=== PATIENT | male | born 1945 | race Caucasian/White ===

== ENCOUNTER 2017-11-09 23:22 | Inpatient (IN) ==
--- NOTE | 2017-11-09 23:43 | Emergency Department Note ---
Disposition Clinical Impression: Dehydration, MICAH (acute kidney injury), Left bundle branch block Syncope Qualifiers: Syncope type: unspecified Qualified Code(s): R55 - Syncope and collapse Disposition: Admitted As Inpatient Condition: Good [facility]errals: [facility]Primary Care Provider[facility] - Forms: ED Satisfaction Letter Time of Disposition: 01:02 Syncope HPI - General Chief Complaint: ED Syncope Time Seen by Provider: 11/09/17 23:26 Vital Signs Reviewed: Yes - History of Present Illness HPI Narrative: 72-year-old male presents status post 2 syncopal episodes. He does not remember passing out. He does remember being dizzy. He gave a double unit of red blood cells to the [place] this morning at 11 AM. He states that he did not eat or drink like he was supposed to after giving blood. He has not eaten since he gave blood, he has drank 1 glass of water. He does not currently feel dizzy. He states that his vitals were perfect when he gave blood this morning. - Related Data Allergies Allergy/AdvReac Type Severity Reaction Status Date / Time No Known Allergies Allergy Verified 11/09/17 23:35 Constitutional: Denies: fever, chills Cardiovascular: Denies: chest pain Respiratory: Denies: dyspnea Gastrointestinal: Denies: abdominal pain, nausea, vomiting, diarrhea Neurological: Reports: other (dizziness) Past Medical History - Past Medical History Medical history: Reports: diabetes - Social History Smoking Status: Never smoker Alcohol use: Reports: occasionally Drug use: Reports: none Physical Exam - General General appearance: alert, in no apparent distress Course - Reevaluation(s) Reevaluation #1: Dr. Dwyer, hospitalist, accepts admission. He would like interventional cardiology made aware of patient due to presence of ?new onset left bundle branch block. Time: 01:03 Reevaluation #2: Spoke to Dr. Suh, interventional cardiology, at the request of Dr. Dwyer and made him aware of the patient and his LBBB. Time: 01:09 Vital Signs Temperature 97.6 F 11/09/17 23:26 Pulse Rate 75 11/09/17 23:26 Respiratory Rate 16 11/09/17 23:26 Blood Pressure 109/59 11/09/17 23:26 O2 Sat by Pulse Oximetry 96 11/09/17 23:26 Temperature 97.6 F 11/09/17 23:26 Pulse Rate 76 08/26/18 00:34 Respiratory Rate 16 11/09/17 23:26 Blood Pressure 101/55 11/10/17 00:34 O2 Sat by Pulse Oximetry 96 11/09/17 23:26 Oxygen Delivery Oxygen Delivery Room Air Syncope - MDM Narrative Medical decision making narrative: 72-year-old male presents status post witnessed syncopal episodes. He gave a double unit of red blood cells this morning and states he did not eat or drink after. We will do a cardiac workup. EKG shows left bundle branch block with prolonged AL and QTc intervals - no old EKG for comparison. Labs show MICAH with Cr 2.04 (patient does not report a history of CKD). Normal troponin. Negative orthostatic vital signs. - Lab Data Lab results reviewed: Yes I reviewed the patient's lab results. Result diagrams: 11/09/17 23:49 11/09/17 23:49 Lab Results 11/09/17 11/09/17 Range/Units 23:49 23:49 WBC 12.3 H (4.3-11.1) K/mcL RBC 3.79 L (4.19-5.50) M/mcL Hgb 11.0 L (12.9-16.9) g/dL Hct 33.0 L (37.5-50.1) % MCV 87.1 (83.0-100.0) fL MCH 29.0 (28.0-33.3) pg MCHC 33.3 (31.6-35.5) g/dL RDW 13.8 (11.5-14.5) % Plt Count 232 (140-400) K/mcL MPV 10.1 (9.4-12.4) fL Immature Gran % 0.7 (0-4) % Seg Neutrophils % 78.1 % Lymphocytes % 11.9 % Monocytes % 8.0 % Eosinophils % 0.9 % Basophils % 0.4 % Neutrophils # 9.6 H (1.6-8.9) K/mcL Lymphocytes # 1.5 (0.6-4.6) K/mcL Monocytes # 1.0 (0.0-1.3) K/mcL Eosinophils # 0.1 (0.0-0.6) K/mcL Basophils # 0.1 (0.0-0.2) K/mcL Sodium 136 (136-145) mEq/L Potassium 4.1 (3.5-5.1) mEq/L Chloride 114 H (98-107) mEq/L Carbon Dioxide 23 (23-29) mEq/L BUN 13 (8-23) mg/dL Creatinine 2.04 H (0.70-1.30) mg/dL Est GFR ( Amer) 39 L (> 60) Est GFR (Non-Af Amer) 32 L (> 60) BUN/Creatinine Ratio 6 (6-26) Glucose 166 H (70-105) mg/dL Calculated Osmolality 286 (280-300) Calcium 8.8 (8.6-10.3) mg/dL Troponin I < 0.03 (< 0.04) ng/mL - Radiology Data Radiology results reviewed: Yes I reviewed the patient's radiology results. - EKG Data EKG attestation: Yes I reviewed and interpreted this EKG. EKG results narrative: late limb lead progression EKG shows normal: sinus rhythm, intervals Rate: normal Rhythm: NSR [place]/QRS: right axis deviation, LBBB, wide QRS complex P waves: other (prolonged AL) QTc: prolonged Interpretation: no acute changes
--- NOTE | 2017-11-09 23:55 | Emergency Department Note ---
Disposition Clinical Impression: Syncope Disposition: Still a Patient Forms: ED Satisfaction Letter General Adult HPI - General Chief complaint: ED Syncope Time Seen by Provider: 11/09/17 23:26 - History of Present Illness Pain Scale: 0 - Related Data Allergies Allergy/AdvReac Type Severity Reaction Status Date / Time No Known Allergies Allergy Verified 11/09/17 23:35 Constitutional: Denies: fever, chills Cardiovascular: Denies: chest pain Respiratory: Denies: dyspnea Gastrointestinal: Denies: abdominal pain, nausea, vomiting, diarrhea Neurological: Reports: other (dizziness) Past Medical History - Past Medical History Medical history: Reports: diabetes - Social History Smoking Status: Never smoker Alcohol use: Reports: occasionally Drug use: Reports: none Physical Exam - General General appearance: alert, in no apparent distress Course Vital Signs Temperature 97.6 F 11/09/17 23:26 Pulse Rate 75 11/09/17 23:26 Respiratory Rate 16 11/09/17 23:26 Blood Pressure 109/59 11/09/17 23:26 O2 Sat by Pulse Oximetry 96 11/09/17 23:26 Temperature 97.6 F 11/09/17 23:26 Pulse Rate 75 11/09/17 23:26 Respiratory Rate 16 11/09/17 23:26 Blood Pressure 109/59 11/09/17 23:26 O2 Sat by Pulse Oximetry 96 11/09/17 23:26 Oxygen Delivery Oxygen Delivery Room Air Attestation Statement - Attestation Attestation: I examined this patient and my medical decision-making was reviewed with the Resident Physician. I agree with the documented findings, disposition and treatment plan as described except to the extent set forth below. 72-year-old male presented to the emergency room for syncope. Patient had given 2 units of blood today but has not really eaten or drank much after this. He had 2 syncopal episodes since then. He denies any chest pain or shortness of breath. He feels at his baseline now. He is a known diabetic as well. He has no history of coronary disease. No history of syncope. He denies any face arm or leg numbness. No strokelike symptoms. Stable. Plan to do a cardiac evaluation in the ER and if unremarkable patient will likely be able to go home. Is likely secondary to volume depletion from the blood donation as well as not eating or drinking today in the setting of being diabetic.
[2017-11-10 00:20] LABS: Basophils # 0.1 K/mcL (0.0-0.2); Basophils % 0.4 %; Eosinophils # 0.1 K/mcL (0.0-0.6); Eosinophils % 0.9 %; Immature Granulocytes % 0.7 % (0-4); Lymphocytes # 1.5 K/mcL (0.6-4.6); Lymphocytes % 11.9 %; Mean Corpuscular HGB Conc 33.3 g/dL (31.6-35.5); Mean Corpuscular Volume 87.1 fL (83.0-100.0); Mean Platelet Volume 10.1 fL (9.4-12.4); Neutrophils # 9.6 K/mcL (1.6-8.9); Platelet Count 232 K/mcL (140-400); Red Blood Count 3.79 M/mcL (4.19-5.50); Red Cell Distribution Width 13.8 % (11.5-14.5); Segmented Neutrophils % 78.1 %
[2017-11-10 00:25] LABS: BUN/Creatinine Ratio 6 (6-26); Blood Urea Nitrogen 13 mg/dL (8-23); Calcium 8.8 mg/dL (8.6-10.3); Carbon Dioxide 23 mEq/L (23-29); Chloride 114 mEq/L (98-107); Glucose 166 mg/dL (70-105); Osmolality,Calculated 286 (280-300); Potassium 4.1 mEq/L (3.5-5.1); Sodium 136 mEq/L (136-145); Troponin I < 0.03 ng/mL (< 0.04); eGFR For Non-African Americans 32 (> 60)
[2017-11-10] MEDS ORDERED: 0.9 % Sodium Chloride 1,000 ML IVC ONE (00:31)
[2017-11-10] MEDS ORDERED: Naloxone 0.4 MG/ML INJ IVP PRN ×3 (04:10→05:17)
--- NOTE | 2017-11-10 05:01 | Internal Med History&Physical ---
Date of Encounter: 11/10/17 Time of Encounter: 04:48 Internal Medicine - H&P: HPI Chief complaint: Syncope History of present illness: Mr. Reveles is a pleasant 72 year old male with a past medical history of diabetes and presumed hypertension who presents today to the ED after 2 witnessed syncopal episodes. Patient had donated blood earlier today around 12 PM. The exact amount of which he is unsure but states that the [place] refers to it as a "double red". 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 He states that he began feeling lightheaded and shortly thereafter awoke on the ground surrounded by staff. Patient was taken and placed into a chair where he reportedly had another syncopal episode however, does not recall the second one. Patient otherwise states that he has donated blood on numerous occasions in the past however, this was the first time he did not eat or drink sufficiently after doing so. Patient otherwise denies any symptoms of chest pain, palpitations, shortness of breath, extremity weakness. Per EMS reports patient was was found to have a blood pressure of 90/51 on initial assessment with a heart rate of 77. Patient's blood pressure responded to 400 mL fluid bolus en route. EKG was concerning for a left bundle-branch block Patient is a patient at the [place]. He is a never smoker and drinks alcohol only on social occasions. No illicit drug use. His father of a massive myocardial infarction at the age of 70. His daughter from a brain tumor in her 30s. Past Med Surg Social Fam HX - Past Medical History Medical history: diabetes, hypertension, kidney stones Psychiatric history: no psych history - Past Surgical History Additional surgical history: back surgery 30yrs ago - Social History Smoking Status: Never smoker Alcohol use: occasionally Drug use: none Internal Medicine - H&P: Meds 3 Allergy/AdvReac Type Severity Reaction Status Date / Time No Known Allergies Allergy Verified 11/09/17 23:35 All Systems PM: A 10-system review of systems was performed and is negative for pertinent findings except as documented above in the HPI. - Constitutional Constitutional: no chills, no fever(s), no night sweats - EENT Eyes: no change in vision, no discharge, no pain, no photophobia Ears: no ear discharge, no ear pain, no tinnitus Nose, mouth and throat: no dysphagia, no nasal discharge, no neck pain, no sore throat - Cardiovascular Cardiovascular ROS IM: no chest pain, no diaphoresis, no dyspnea, no lightheadedness, no palpitations, no syncope - Respiratory Respiratory: no cough, no dyspnea, no wheezing, no excessive phlegm production - Gastrointestinal Gastrointestinal: no abdominal pain, no diarrhea, no hematemesis, no hematochezia, no melena, no nausea, no vomiting - Musculoskeletal Musculoskeletal ROS IM: no numbness, no tingling - Integumentary Integumentary IM: no rash, no unusual bruising - Neurological Neurological ROS: no confusion, no convulsions, no focal weakness, no numbness, no tingling, no tremor(s) - Hematologic/Lymphatic Hematologic/Lymphatic: no easy bruising - Constitutional Vitals: Temp Pulse Resp BP Pulse Ox 97.5 F L 72 15 119/88 95 11/10/17 04:07 11/10/17 04:07 11/10/17 04:07 11/10/17 04:07 11/10/17 04:07 Exam: General: Alert and oriented 3. Lying in bed in no acute distress. Skin:Normal color, no rash, no lesions. HEENT:EOM, pupils equal, round and reactive. Cardiovascular:Normal S1 & S2, no rubs, murmurs or gallops. No JVD. Pulse regular. Lungs:Normal breath sounds, no wheezes or crackles. Abdomen:Soft, non-tender, no rigidity. Extremities:No deformity, no edema or tenderness, no joint swelling or clubbing. Neurological:Normal cognition and motor skills. Pulses:Carotid and radial pulses normal +2. Rest of the physical exam is non contributory Internal Med - H&P Results - Labs CBC & Chem 7: 11/10/17 04:52 11/10/17 04:52 - Assessment and plan (1) Syncope Current Visit: Yes Status: Acute Assessment and plan: Syncopal episode 2 most likely secondary to intravascular volume depletion secondary to blood donation and inadequate PO intake thereafter. EKG concerning for left bundle branch block. We have no previous EKG to assess whether this is new finding or not. Troponins were negative. Cardiology was made aware at this time we will see the patient in the morning but otherwise is not concerned. Patient otherwise does not endorse any chest pain, one-sided weakness to suggest a cardio cerebral vascular incident. We will place patient on telemetry. Trend troponin. Echocardiogram and ultrasound of the carotids to be performed in the morning. Cardiology consult. Qualifiers: Syncope type: unspecified Qualified Code(s): R55 - Syncope and collapse (2) Left bundle branch block Current Visit: Yes Status: Acute Assessment and plan: Unlikely a new finding given his normal troponin and history on presentation. Patient may have underlying cardiac ischemic disease and will need further workup. Cardiology aware and will see patient in the morning. Continue telemetry (3) MICAH (acute kidney injury) Current Visit: Yes Status: Acute Assessment and plan: Acute kidney injury with a creatinine of 2.04. Again patient has no previous medical records with us and so we have no baseline to compare to. However most likely this is secondary to intravascular volume depletion ie prerenal. We will hold patient's lisinopril for now patient received 1 fluid bolus in the ED. Continue with maintenance fluids at 100 mL an hour. Trend creatinine. (4) Dehydration Current Visit: Yes Status: Acute Assessment and plan: Patient received 1 L fluid bolus in the ED. We will continue maintenance fluids at 100 mL an hour. - Time Spent With Patient Total time spent is greater than 50% in coordination of care (as documented) at patient's floor/unit and/or counseling patient:
[2017-11-10] MEDS ORDERED: *HR* Dextrose 50 % in Water (Syg) 50 ML SYRINGE IVP PRN (05:16)
[2017-11-10] MEDS ORDERED: D5% in Water 1,000 ML IVC PRN (05:16)
[2017-11-10] MEDS ORDERED: Dextrose Gel 15 GM/37.5 ML TUBE PO PRN ×2 (05:16)
[2017-11-10] MEDS: 0.9 % Sodium Chloride 1,000 ML IVC SCH ×2 (05:28→16:18)
[2017-11-10 05:48] LABS: Hematocrit 32.2 % (37.5-50.1); Hemoglobin 10.7 g/dL (12.9-16.9); Mean Corpuscular HGB Conc 33.2 g/dL (31.6-35.5); Mean Corpuscular Hemoglobin 28.1 pg (28.0-33.3); Mean Corpuscular Volume 84.5 fL (83.0-100.0); Mean Platelet Volume 10.3 fL (9.4-12.4); Platelet Count 240 K/mcL (140-400); Red Blood Count 3.81 M/mcL (4.19-5.50); Red Cell Distribution Width 14.2 % (11.5-14.5)
[2017-11-10] MEDS ORDERED: Insulin LISPRO 300 UNITS/3 ML VIAL SQ SCH ×2 (06:00→21:00)
[2017-11-10 06:11] LABS: Albumin 3.9 g/dL (3.5-5.7); Albumin/Globulin Ratio 1.6 (1.1-2.2); Bilirubin,Total 1.1 mg/dL (0.3-1.0); Calcium 8.7 mg/dL (8.6-10.3); Globulin 2.4 g/dL (2.4-3.5); Potassium 3.9 mEq/L (3.5-5.1); Total Protein 6.3 g/dL (6.4-8.9)
--- NOTE | 2017-11-10 07:32 | Event Note ---
Date of Encounter: 11/10/17 Time of Encounter: 09:00 See full H&P by my colleague from earlier today. 72M donated blood and had syncope x 2 several hours later, no fall or trauma, was able to lie down. Exam unchanged from prior except that there are few coarse crackles at bases, right > left. # Syncope # MICAH, possible dehydration # LBBB, unknown duration - no postural hypotension - Cr 2.0 --> 1.6 (baseline unknown, can attempt to obtain records from [facility] on Saturday, he had blood work within the last year) - troponin negative - Cont IVF - Cont telemetry x 24 hours - IS - Echo, carotid Duplex, cardiology evaluation pending
[2017-11-10] MEDS: Insulin LISPRO 300 UNITS/3 ML VIAL SQ SCH ×3 (07:54→19:13)
[2017-11-10] MEDS: Aspirin 81 MG TAB.CHEW PO SCH (09:56)
[2017-11-11 05:16] LABS: Hematocrit 32.4 % (37.5-50.1); Hemoglobin 10.7 g/dL (12.9-16.9); Mean Corpuscular Hemoglobin 28.5 pg (28.0-33.3); Mean Corpuscular Volume 86.2 fL (83.0-100.0); Mean Platelet Volume 10.2 fL (9.4-12.4); Platelet Count 214 K/mcL (140-400); Red Blood Count 3.76 M/mcL (4.19-5.50); Red Cell Distribution Width 13.9 % (11.5-14.5)
[2017-11-11 05:35] LABS: BUN/Creatinine Ratio 14 (6-26); Blood Urea Nitrogen 15 mg/dL (8-23); Calcium 8.7 mg/dL (8.6-10.3); Carbon Dioxide 25 mEq/L (23-29); Chloride 107 mEq/L (98-107); Glucose 128 mg/dL (70-105); Magnesium 1.7 mg/dL (1.6-2.6); Osmolality,Calculated 288 (280-300); Potassium 3.9 mEq/L (3.5-5.1); Sodium 138 mEq/L (136-145); eGFR For Non-African Americans > 60 (> 60)
[2017-11-11] MEDS: Insulin LISPRO 300 UNITS/3 ML VIAL SQ SCH (10:04)
[2017-11-11] MEDS: Aspirin 81 MG TAB.CHEW PO SCH (10:04)
[2017-11-11 11:54] VITALS: BP 119/82
[2017-11-11 12:58] LABS: Bilirubin,Urine Negative (Negative); Blood,Urine Negative (Negative); Clarity,Urine Clear (Clear); Color,Urine Yellow (Yellow); Glucose,Urine (UA) 250 mg/dL (Normal); Ketones,Urine Negative (Negative); Leukocyte Esterase,Urine Negative (Negative); Nitrite,Urine Negative (Negative); PH,Urine 6.5 pH Units (5.0-8.0); Protein,Urine Negative (Neg-Trace); Urobilinogen,Urine Normal (Normal)
--- NOTE | 2017-11-11 13:14 | Discharge Summary ---
- NOTES TO OUTPATIENT PROVIDER Notes to Outpatient Provider: PCP in 5 to 7 days Date of Encounter: 11/11/17 Time of Encounter: 13:12 - Discharge Diagnosis (1) Syncope Priority: Primary Status: Acute Assessment and Plan: Syncopal episode 2 most likely secondary to intravascular volume depletion secondary to blood donation and inadequate PO intake thereafter. EKG concerning for left bundle branch block. We have no previous EKG to assess whether this is new finding or not. Troponins were negative. Cardiology was made aware at this time we will see the patient in the morning but otherwise is not concerned. Patient otherwise does not endorse any chest pain, SOB, diaphoresis to suggest cardio cerebral vascular incident. We will place patient on telemetry. Trend troponin. Echocardiogram and ultrasound of the carotids to be performed in the morning. Qualifiers: Syncope type: unspecified Qualified Code(s): R55 - Syncope and collapse (2) Dehydration Priority: Primary Status: Acute Assessment and Plan: Resolved. (3) MICAH (acute kidney injury) Priority: Primary Status: Acute Assessment and Plan: Resolved. Acute kidney injury with a creatinine of 2.04 on admission. Patient has no previous medical records with us and so we have no baseline to compare to. MICAH most likely secondary to intravascular volume depletion i.e. prerenal. Patient's lisinopril was on hold and responded to 1 L fluid bolus given in the ED. He also received maintenance fluids at 100 mL an hour. Cr 1.04 today and back to nml (4) Left bundle branch block Priority: Secondary Status: Acute Assessment and Plan: Unlikely a new finding given his normal troponin and history on presentation. Patient may have underlying cardiac ischemic disease and will need further workup. Cardiology aware and will see patient in the morning. Continue telemetry. Hospital course: Mr. Reveles is a 72 year old male with a past medical history of diabetes and presumed hypertension who presents today to the ED after 2 witnessed syncopal episodes. Patient had donated blood earlier today around 12 PM. The exact amount of which he is unsure but states that the [place] refers to it as a "double red". 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 He states that he began feeling lightheaded and shortly thereafter awoke on the ground surrounded by staff. Patient was taken and placed into a chair where he reportedly had another syncopal episode however, does not recall the second one. Patient otherwise states that he has donated blood on numerous occasions in the past however, this was the first time he did not eat or drink sufficiently after doing so. Patient otherwise denies any symptoms of chest pain, palpitations, shortness of breath, extremity weakness. Per EMS reports patient was was found to have a blood pressure of 90/51 on initial assessment with a heart rate of 77. Patient's blood pressure responded to 400 mL fluid bolus en route. EKG was concerning for a left bundle-branch block Patient is a patient at the [place]. He is a never smoker and drinks alcohol only on social occasions. No illicit drug use. Discharge discussed with: patient - Time Spent with Patient Total time spent providing and/or coordinating discharge services: Greater than 30 minutes - Discharge Medications Home Medications: Aspirin [Adult Aspirin] 81 mg PO DAILY 11/10/17 [History] Atorvastatin [Lipitor] 10 mg PO HS 11/10/17 [History] Lisinopril-HCTZ 20-12.5 [Prinzide 20-12.5] 1 tab PO DAILY 11/10/17 [History] Metformin HCl 1,500 mg PO QAM 11/10/17 [History] Metformin HCl [Glucophage] 1,000 mg PO QPM 11/10/17 [History] Saxagliptin HCl [Onglyza] 5 mg PO DAILY 11/10/17 [History] amLODIPine [Norvasc] 5 mg PO DAILY 11/10/17 [History] glipiZIDE [Glipizide] 20 mg PO BID 11/10/17 [History] Allergies/Adverse Reactions: 3 Allergy/AdvReac Type Severity Reaction Status Date / Time No Known Allergies Allergy Verified 11/09/17 23:35 Date of admission: 11/10/17 05:51 Primary care physician: [facility] Discharging clinician: Maria Luisa Rosenberg Anticipated date of discharge: 11/11/17 - Constitutional Vitals: Temp Pulse Resp BP Pulse Ox 98.1 F 61 16 119/82 97 11/11/17 11:54 11/11/17 11:54 11/11/17 11:54 11/11/17 11:54 11/11/17 11:54 General appearance: Present: A&O X 3, no acute distress Exam: See physical exam below - Head Head exam: Present: atraumatic, normocephalic - Eye Eye exam: Present: PERRL, conjuntiva pink, sclera anicteric Pupils: Present: PERRL - Neck Neck exam general surgery: Present: supple, trachea midline. Absent: lymphadenopathy - Respiratory Respiratory exam: Present: CTAB. Absent: accessory muscle use, rales, rhonchi, wheezes - Cardiovascular Cardiovascular exam: Present: RRR, +S1, +S2. Absent: diastolic murmur, gallop, rubs, systolic murmur - GI/Abdominal GI/Abdominal exam: Present: normal bowel sounds, soft, no peritoneal signs. Absent: distended, tenderness - Extremities Exam Extremities exam: Present: warm, radial pulses palpable and symmetrical. Absent : calf tenderness, cyanotic, pedal edema - Neurological Exam Neurological exam: Present: CN II-XII intact, oriented X3, no focal deficits. Absent: pronater drift, facial droop, speech deficit - Skin Skin exam: Present: dry, intact - Patient Status Disposition: Home, Self-Care Condition: Good Overall status at discharge: patient is back to baseline - Discharge Instructions Instructions: Acute Kidney Injury (DC), Syncope (DC) [facility] Provider[facility] - 11/19/17 10:30 am (this appointment is at the [facility]) - Diet and Activity Diet: advance to your usual diet
--- NOTE | 2017-11-11 18:22 | Electrocardiograph Report ---
[place] [id number] Test Date: 2017-11-09 Pat Name: Arcadio Reveles Department: EXAM10 Room: [facility] Gender: Idea Worker: : 1945 Requested By: Otilia Rosas Order Number: [id number] Reading MD: Andrei Chairez Measurements Intervals [place] Rate: 75 P: 60 [place]: QRS: -24 QRSD: 172 T: 146 QT: 445 QTc: 498 Interpretive Statements Sinus rhythm First degree AV block Left bundle branch block Electronically Signed On 11-11-2017 18:20:47 EDT by Andrei Chairez
--- NOTE | 2017-11-13 07:37 | Electrocardiograph Report ---
[place] [address] Test Date: 2017-11-10 Pat Name: Arcadio Reveles Department: 111 Room: [facility] Gender: Rn Palliative Care: : 1945 Requested By: Michael Ch Order Number: [id number] Reading MD: Sherlyn Chavira Measurements Intervals [place] Rate: 67 P: 35 [place]: 239 QRS: -34 QRSD: 175 T: 148 QT: 461 QTc: 476 Interpretive Statements SINUS RHYTHM WITH FIRST DEGREE AV BLOCK MARKED LEFT AXIS DEVIATION LEFT BUNDLE BRANCH BLOCK Electronically Signed On 11-13-2017 7:35:51 EDT by Sherlyn Chavira
== END 2017-11-11 15:06 | disposition home or self-care (01) | DRG 684 ==
LOC: 2NENU 23:22 → EMEROOARM 23:22 → 2NENU 11-10 01:57
PROVIDERS: ADMIT Internal Medicine; ATTEND Pediatrics

== ENCOUNTER 2020-03-15 05:03 | Inpatient (IN) ==
[2020-03-15] MEDS ORDERED: 0.9 % Sodium Chloride 1,000 ML IVC ONE ×2 (05:05→05:32)
[2020-03-15 05:29] LABS: ABG Base Excess -4 mEq/L (-2 to 3); ABG HCO3 23 mEq/L (21-27); ABG Oxygen Saturation 96 % (95-98); ABG PCO2 45 mmHg (35-45); ABG PH 7.31 pH Units (7.32-7.45); ABG PO2 91 mmHg (85-104); ABG TCO2 24 mEq/L (20-26)
[2020-03-15] MEDS ORDERED: 0.9 % Sodium Chloride 1,000 ML ONE (05:32)
[2020-03-15 05:49] LABS: Bacteria,Urine Few per hpf (None-Few); Basophils # 0.2 K/mcL (0.0-0.2); Bilirubin,Urine Negative (Negative); Blood,Urine Trace (Negative); Clarity,Urine Turbid (Clear); Color,Urine Light-Yellow (Yellow); Eosinophils # 1.6 K/mcL (0.0-0.6); Eosinophils % 8.6 %; Glucose,Urine (UA) Normal (Normal); Hematocrit 33.5 % (37.5-50.1); Hemoglobin 10.7 g/dL (12.9-16.9); Immature Granulocytes % 2.5 % (0-4); Ketones,Urine Negative (Negative); Leukocyte Esterase,Urine Large (Negative); Lymphocytes # 5.1 K/mcL (0.6-4.6); Lymphocytes % 27.9 %; Mean Corpuscular HGB Conc 31.9 g/dL (31.6-35.5); Mean Corpuscular Hemoglobin 28.4 pg (28.0-33.3); Mean Corpuscular Volume 88.9 fL (83.0-100.0); Monocytes # 0.6 K/mcL (0.0-1.3); Monocytes % 3.3 %; Mucus,Urine Few per lpf (None-Few); Neutrophils # 10.4 K/mcL (1.6-8.9); Nitrite,Urine Negative (Negative); Platelet Count 380 K/mcL (140-400); Protein,Urine 30 mg/dL (Neg-Trace); Red Blood Count 3.77 M/mcL (4.19-5.50); Segmented Neutrophils % 56.7 %; Specific Gravity,Urine 1.007 (1.010-1.025); Urobilinogen,Urine Normal (Normal); WBC,Urine TNTC per hpf (0-3); White Blood Count 18.3 K/mcL (4.3-11.1)
[2020-03-15 05:50] LABS: INR 1.1; Prothrombin Time 12.4 Seconds (9.4-12.1)
[2020-03-15 05:53] LABS: Activated Partial Thrombo Time 26.6 Seconds (26.0-36.0)
[2020-03-15 06:23] LABS: Alanine Aminotransferase 19 Units/L (7-52); Albumin 3.6 g/dL (3.5-5.7); Albumin/Globulin Ratio 1.1 (1.1-2.2); Alkaline Phosphatase 107 Units/L (34-104); Aspartate Amino Transferase 20 Units/L (13-39); BUN/Creatinine Ratio 18 (6-26); Bilirubin,Direct 0.2 mg/dL (0.0-0.2); Bilirubin,Indirect 0.7 mg/dL (0.0-1.0); Bilirubin,Total 0.9 mg/dL (0.3-1.0); Blood Urea Nitrogen 44 mg/dL (8-23); Calcium 10.4 mg/dL (8.6-10.3); Carbon Dioxide 21 mEq/L (23-29); Chloride 96 mEq/L (98-107); Ethanol < 10 mg/dL (Less than 10); Globulin 3.4 g/dL (2.4-3.5); Glucose 270 mg/dL (70-105); Osmolality,Calculated 291 (280-300); Potassium 4.5 mEq/L (3.5-5.1); Sodium 130 mEq/L (136-145); Troponin I < 0.03 ng/mL (< 0.04); eGFR For African Americans 32 (> 60); eGFR For Non-African Americans 26 (> 60)
[2020-03-15] MEDS ORDERED: Piperacillin/Tazobactam 3.375 GM in 0.9 % Sodium Chloride Mini Bag 100 ML IVPB ONE (06:36)
[2020-03-15] MEDS ORDERED: Azithromycin 500 MG in 0.9 % Sodium Chloride 250 ML IVPB ONE (06:43)
[2020-03-15] MEDS ORDERED: Cefepime HCl 1,000 MG in 0.9 % Sodium Chloride Mini Bag 100 ML IVPB ONE (06:43)
[2020-03-15] MEDS: Norepinephrine 4 MG/254 ML IV.SOLN IVC SCH ×3 (06:44→13:38)
[2020-03-15] MEDS ORDERED: Acetaminophen IV 1,000 MG/100 ML BAG IVPB ONE (08:54)
[2020-03-15] MEDS ORDERED: Naloxone 0.4 MG/ML INJ IVP PRN (08:56)
[2020-03-15] MEDS ORDERED: Vancomycin (wt based) 1,000 MG VIAL IVPB SCH (09:00)
[2020-03-15] MEDS ORDERED: levoFLOXacin 750 MG/150 ML 750 MG/150 ML BAG IVPB SCH (09:00)
[2020-03-15] MEDS: Ondansetron 4 MG/2 ML VIAL IVP PRN ×2 (09:57→16:32)
[2020-03-15] MEDS ORDERED: Aztreonam 2,000 MG in Water for inj. (sterile) 20 ML IVP SCH (10:30)
[2020-03-15] MEDS: Vasopressin 40 UNIT in D5% in Water 100 ML IVC SCH ×2 (10:36→10:45)
[2020-03-15] MEDS ORDERED: Ringers Solution, Lactated 1,000 ML IVC ONE (10:37)
[2020-03-15] MEDS ORDERED: *HR* Norepinephrine 4 MG/4 ML VIAL IVC ONE (11:02)
[2020-03-15] MEDS ORDERED: 0.9 % Sodium Chloride 250 ML ONE (11:02)
[2020-03-15] MEDS ORDERED: Perflutren Lipid Microsphere 1.3 ML in 0.9 % Sodium Chloride 8.7 ML IVP PRN (11:11)
[2020-03-15] MEDS ORDERED: *HR* Dextrose 50 % in Water (Vial) 50 ML VIAL IVP PRN (13:43)
[2020-03-15] MEDS ORDERED: Dextrose Gel 15 GM/37.5 ML TUBE PO PRN ×2 (13:43)
[2020-03-15] MEDS ORDERED: D5% in Water 1,000 ML IVC PRN (13:43)
[2020-03-15 14:41] LABS: Adenovirus Not Detected (Not Detect); Bordetella Pertussis Not Detected (Not Detect); Chlamydophila pneumoniae Not Detected (Not Detect); Coronavirus 229E Not Detected (Not Detect); Coronavirus HKU1 Not Detected (Not Detect); Coronavirus NL63 Not Detected (Not Detect); Coronavirus OC43 Not Detected (Not Detect); Human Metapneumovirus Not Detected (Not Detect); Human Rhinovirus/Enterovirus Not Detected (Not Detect); Influenza A Subtype 2009 H1 Not Detected (Not Detect); Influenza B Not Detected (Not Detect); Mycoplasma pneumoniae Not Detected (Not Detect); Parainfluenza Virus 1 Not Detected (Not Detect); Parainfluenza Virus 2 Not Detected (Not Detect); Parainfluenza Virus 3 Not Detected (Not Detect); Parainfluenza Virus 4 Not Detected (Not Detect); Respiratory Syncytial Virus Not Detected (Not Detect)
[2020-03-15] MEDS ORDERED: Prochlorperazine 10 MG/2 ML VIAL IVP PRN (16:32)
[2020-03-15] MEDS: MetroNIDAZOLE 500 MG/100 ML 500 MG/100 ML BAG IVPB SCH ×2 (16:33→23:08)
[2020-03-15] MEDS: *HR* Heparin 5,000 UNIT/ML VIAL SQ SCH ×2 (16:45→23:08)
[2020-03-15] MEDS: Insulin LISPRO 300 UNITS/3 ML VIAL SUBQ SCH ×3 (16:45→23:28)
[2020-03-15] MEDS: Norepinephrine 8 MG in 0.9 % Sodium Chloride 250 ML IVC SCH ×2 (16:46→23:22)
[2020-03-15] MEDS: Cefepime HCl 2,000 MG in Water for inj. (sterile) 20 ML IVP SCH (18:24)
[2020-03-15 21:25] LABS: Adenovirus F 40/41 PCR Not detected (Not detect); Astrovirus PCR Not detected (Not detect); C.difficile Toxin A/B Gene PCR Not detected (Not detect); Campylobacter by PCR Not detected (Not detect); Cryptosporidium by PCR Not detected (Not detect); Cyclospora cayetanensis PCR Not detected (Not detect); E. coli O157 by PCR Not detected (Not detect); Entamoeba histolytica PCR Not detected (Not detect); Enteroaggregative E.coli(EAEC) Not detected (Not detect); Enteropathogenic E.coli(EPEC) Not detected (Not detect); Enterotoxigenic E.coli (ETEC) Not detected (Not detect); Giardia lamblia PCR Not detected (Not detect); Norovirus GI/GII PCR Not detected (Not detect); Plesiomonas shigelloides PCR Not detected (Not detect); Rotavirus A PCR Not detected (Not detect); Salmonella PCR Not detected (Not detect); Sapovirus PCR Not detected (Not detect); Shig/EnteroinvasiveE coli EIEC Not detected (Not detect); Shigalike tox-prod E coli STEC Not detected (Not detect); Vibrio PCR Not detected (Not detect); Vibrio cholerae PCR Not detected (Not detect); Yersinia enterocolitica PCR Not detected (Not detect)
[2020-03-16] MEDS: *HR* Heparin 5,000 UNIT/ML VIAL SQ SCH ×3 (06:13→21:04)
[2020-03-16] MEDS: Cefepime HCl 2,000 MG in Water for inj. (sterile) 20 ML IVP SCH ×2 (06:15→20:50)
[2020-03-16] MEDS: Insulin LISPRO 300 UNITS/3 ML VIAL SUBQ SCH ×4 (06:16→23:44)
[2020-03-16 06:48] LABS: Basophils # 0.2 K/mcL (0.0-0.2); Basophils % 0.7 %; Eosinophils # 0.6 K/mcL (0.0-0.6); Eosinophils % 2.1 %; Hematocrit 26.4 % (37.5-50.1); Hemoglobin 8.4 g/dL (12.9-16.9); Immature Granulocytes % 1.1 % (0-4); Lymphocytes % 4.5 %; Mean Corpuscular HGB Conc 31.8 g/dL (31.6-35.5); Mean Corpuscular Hemoglobin 28.2 pg (28.0-33.3); Mean Corpuscular Volume 88.6 fL (83.0-100.0); Mean Platelet Volume 10.1 fL (9.4-12.4); Monocytes # 2.7 K/mcL (0.0-1.3); Neutrophils # 24.9 K/mcL (1.6-8.9); Platelet Count 283 K/mcL (140-400); Red Blood Count 2.98 M/mcL (4.19-5.50); Red Cell Distribution Width 15.9 % (11.5-14.5); Segmented Neutrophils % 82.6 %
[2020-03-16 06:51] LABS: Lymphocytes # 1.4 K/mcL (0.6-4.6)
[2020-03-16 06:55] LABS: White Blood Count 30.1 K/mcL (4.3-11.1)
[2020-03-16] MEDS ORDERED: Azithromycin 500 MG in 0.9 % Sodium Chloride 250 ML IVPB SCH (07:00)
[2020-03-16 07:05] LABS: Large Platelets Present (Not Present); Platelet Estimate Normal (Normal)
[2020-03-16 07:10] LABS: Calcium 9.5 mg/dL (8.6-10.3); Magnesium 1.8 mg/dL (1.6-2.6); Potassium 3.8 mEq/L (3.5-5.1)
[2020-03-16] MEDS: MetroNIDAZOLE 500 MG/100 ML 500 MG/100 ML BAG IVPB SCH ×3 (08:05→23:26)
[2020-03-16] MEDS ORDERED: 0.9 % Sodium Chloride 1,000 ML IVC SCH (10:15)
[2020-03-16] MEDS: Norepinephrine 8 MG in 0.9 % Sodium Chloride 250 ML IVC SCH (10:24)
[2020-03-16 11:08] LABS: Mean Platelet Volume 10.2 fL (9.4-12.4)
[2020-03-16 11:09] LABS: Hematocrit 27.2 % (37.5-50.1); Hemoglobin 8.7 g/dL (12.9-16.9); Mean Corpuscular Hemoglobin 28.6 pg (28.0-33.3); Mean Corpuscular Volume 89.5 fL (83.0-100.0); Platelet Count 274 K/mcL (140-400); Red Blood Count 3.04 M/mcL (4.19-5.50); White Blood Count 27.4 K/mcL (4.3-11.1)
[2020-03-16 11:44] LABS: Basophils # 1.1 K/mcL (0.0-0.2); Eosinophils # 2.2 K/mcL (0.0-0.6); Monocytes # 0.6 K/mcL (0.0-1.3); Neutrophils # 23.6 K/mcL (1.6-8.9)
[2020-03-16 11:45] LABS: Platelet Estimate Normal (Normal)
[2020-03-16 12:55] LABS: Uric Acid 8.7 mg/dL (2.3-7.6)
[2020-03-16 15:49] LABS: Basophils # 0.2 K/mcL (0.0-0.2); Basophils % 0.7 %; Eosinophils # 0.9 K/mcL (0.0-0.6); Eosinophils % 4.2 %; Hematocrit 27.2 % (37.5-50.1); Hemoglobin 8.6 g/dL (12.9-16.9); Immature Granulocytes % 0.8 % (0-4); Lymphocytes # 1.2 K/mcL (0.6-4.6); Lymphocytes % 5.1 %; Mean Corpuscular HGB Conc 31.6 g/dL (31.6-35.5); Mean Corpuscular Hemoglobin 28.9 pg (28.0-33.3); Mean Corpuscular Volume 91.3 fL (83.0-100.0); Mean Platelet Volume 10.6 fL (9.4-12.4); Monocytes # 1.4 K/mcL (0.0-1.3); Monocytes % 6.4 %; Neutrophils # 18.7 K/mcL (1.6-8.9); Platelet Count 247 K/mcL (140-400); Red Blood Count 2.98 M/mcL (4.19-5.50); Red Cell Distribution Width 16.2 % (11.5-14.5); Segmented Neutrophils % 82.8 %; White Blood Count 22.6 K/mcL (4.3-11.1)
[2020-03-17 04:25] LABS: Basophils # 0.2 K/mcL (0.0-0.2); Basophils % 0.8 %; Eosinophils # 1.7 K/mcL (0.0-0.6); Eosinophils % 9.1 %; Hematocrit 23.7 % (37.5-50.1); Hemoglobin 7.5 g/dL (12.9-16.9); Immature Granulocytes % 0.8 % (0-4); Lymphocytes # 1.1 K/mcL (0.6-4.6); Lymphocytes % 5.9 %; Mean Corpuscular HGB Conc 31.6 g/dL (31.6-35.5); Mean Corpuscular Hemoglobin 29.4 pg (28.0-33.3); Mean Corpuscular Volume 92.9 fL (83.0-100.0); Mean Platelet Volume 10.2 fL (9.4-12.4); Monocytes # 1.2 K/mcL (0.0-1.3); Monocytes % 6.1 %; Neutrophils # 14.7 K/mcL (1.6-8.9); Platelet Count 211 K/mcL (140-400); Red Blood Count 2.55 M/mcL (4.19-5.50); Red Cell Distribution Width 16.2 % (11.5-14.5); Segmented Neutrophils % 77.3 %; White Blood Count 19.1 K/mcL (4.3-11.1)
[2020-03-17 04:45] LABS: Calcium 9.4 mg/dL (8.6-10.3); Magnesium 1.8 mg/dL (1.6-2.6); Potassium 3.9 mEq/L (3.5-5.1)
[2020-03-17] MEDS: Vasopressin 40 UNIT in D5% in Water 100 ML IVC SCH (04:45)
[2020-03-17] MEDS: Ondansetron 4 MG/2 ML VIAL IVP PRN (05:19)
[2020-03-17] MEDS: *HR* Heparin 5,000 UNIT/ML VIAL SQ SCH ×3 (06:03→22:58)
[2020-03-17] MEDS: Insulin LISPRO 300 UNITS/3 ML VIAL SUBQ SCH ×4 (06:04→23:53)
[2020-03-17] MEDS: Cefepime HCl 2,000 MG in Water for inj. (sterile) 20 ML IVP SCH ×2 (06:04→18:00)
[2020-03-17] MEDS: MetroNIDAZOLE 500 MG/100 ML 500 MG/100 ML BAG IVPB SCH ×3 (07:38→23:49)
[2020-03-17] MEDS ORDERED: 0.9 % Sodium Chloride 1,000 ML IVC SCH ×2 (10:45→20:33)
[2020-03-17 12:08] LABS: Basophils # 0.1 K/mcL (0.0-0.2); Basophils % 0.6 %; Eosinophils # 1.7 K/mcL (0.0-0.6); Eosinophils % 7.9 %; Hematocrit 24.3 % (37.5-50.1); Hemoglobin 7.9 g/dL (12.9-16.9); Immature Granulocytes % 0.6 % (0-4); Lymphocytes # 1.1 K/mcL (0.6-4.6); Lymphocytes % 5.1 %; Mean Corpuscular HGB Conc 32.5 g/dL (31.6-35.5); Mean Corpuscular Hemoglobin 29.6 pg (28.0-33.3); Mean Platelet Volume 10.5 fL (9.4-12.4); Monocytes # 1.2 K/mcL (0.0-1.3); Monocytes % 5.3 %; Neutrophils # 17.6 K/mcL (1.6-8.9); Platelet Count 213 K/mcL (140-400); Red Blood Count 2.67 M/mcL (4.19-5.50); Red Cell Distribution Width 16.2 % (11.5-14.5); Segmented Neutrophils % 80.5 %; White Blood Count 21.9 K/mcL (4.3-11.1)
[2020-03-17] MEDS ORDERED: Dextrose Gel 15 GM/37.5 ML TUBE PO PRN ×2 (20:33)
[2020-03-17] MEDS ORDERED: Ondansetron 4 MG/2 ML VIAL IVP PRN (20:33)
[2020-03-17] MEDS ORDERED: D5% in Water 1,000 ML IVC PRN (20:33)
[2020-03-17] MEDS ORDERED: Naloxone 0.4 MG/ML INJ IVP PRN (20:33)
[2020-03-17] MEDS ORDERED: *HR* Dextrose 50 % in Water (Vial) 50 ML VIAL IVP PRN (20:33)
[2020-03-18] MEDS: *HR* Heparin 5,000 UNIT/ML VIAL SQ SCH ×2 (06:12→15:15)
[2020-03-18] MEDS: Insulin LISPRO 300 UNITS/3 ML VIAL SUBQ SCH ×3 (06:13→18:07)
[2020-03-18] MEDS: Cefepime HCl 2,000 MG in Water for inj. (sterile) 20 ML IVP SCH ×2 (06:36→18:06)
[2020-03-18 07:21] LABS: Basophils # 0.1 K/mcL (0.0-0.2); Basophils % 0.6 %; Eosinophils # 1.7 K/mcL (0.0-0.6); Eosinophils % 9.4 %; Hematocrit 24.6 % (37.5-50.1); Hemoglobin 7.8 g/dL (12.9-16.9); Immature Granulocytes % 0.5 % (0-4); Lymphocytes # 1.2 K/mcL (0.6-4.6); Lymphocytes % 6.7 %; Mean Corpuscular HGB Conc 31.7 g/dL (31.6-35.5); Mean Corpuscular Hemoglobin 29.1 pg (28.0-33.3); Mean Corpuscular Volume 91.8 fL (83.0-100.0); Mean Platelet Volume 9.9 fL (9.4-12.4); Monocytes # 0.7 K/mcL (0.0-1.3); Neutrophils # 14.2 K/mcL (1.6-8.9); Platelet Count 202 K/mcL (140-400); Red Blood Count 2.68 M/mcL (4.19-5.50); Red Cell Distribution Width 16.1 % (11.5-14.5); Segmented Neutrophils % 78.8 %
[2020-03-18 07:26] LABS: Calcium 9.9 mg/dL (8.6-10.3); Magnesium 1.6 mg/dL (1.6-2.6); Potassium 3.4 mEq/L (3.5-5.1)
[2020-03-18] MEDS: MetroNIDAZOLE 500 MG/100 ML 500 MG/100 ML BAG IVPB SCH ×2 (08:17→15:21)
[2020-03-18] MEDS ORDERED: Potassium Chloride Elixir 20 MEQ/15 ML UDC GTUBE ONE (14:34)
[2020-03-19] MEDS: MetroNIDAZOLE 500 MG/100 ML 500 MG/100 ML BAG IVPB SCH ×4 (00:19→23:40)
[2020-03-19] MEDS: Insulin LISPRO 300 UNITS/3 ML VIAL SUBQ SCH ×4 (00:20→17:20)
[2020-03-19] MEDS: *HR* Heparin 5,000 UNIT/ML VIAL SQ SCH ×4 (00:21→22:17)
[2020-03-19] MEDS: Cefepime HCl 2,000 MG in Water for inj. (sterile) 20 ML IVP SCH ×2 (05:23→18:47)
[2020-03-19 08:37] LABS: Basophils # 0.1 K/mcL (0.0-0.2); Basophils % 0.8 %; Eosinophils # 1.7 K/mcL (0.0-0.6); Eosinophils % 10.2 %; Hematocrit 26.3 % (37.5-50.1); Hemoglobin 8.4 g/dL (12.9-16.9); Immature Granulocytes % 1.3 % (0-4); Lymphocytes # 1.5 K/mcL (0.6-4.6); Lymphocytes % 9.1 %; Mean Corpuscular HGB Conc 31.9 g/dL (31.6-35.5); Mean Corpuscular Volume 90.7 fL (83.0-100.0); Mean Platelet Volume 10.1 fL (9.4-12.4); Monocytes # 1.1 K/mcL (0.0-1.3); Monocytes % 6.3 %; Platelet Count 207 K/mcL (140-400); Red Cell Distribution Width 15.8 % (11.5-14.5); Segmented Neutrophils % 72.3 %; White Blood Count 16.6 K/mcL (4.3-11.1)
[2020-03-19 08:56] LABS: BUN/Creatinine Ratio 29 (6-26); Blood Urea Nitrogen 39 mg/dL (8-23); Carbon Dioxide 26 mEq/L (23-29); Chloride 107 mEq/L (98-107); Glucose 217 mg/dL (70-105); Magnesium 1.6 mg/dL (1.6-2.6); Osmolality,Calculated 302 (280-300); Potassium 3.4 mEq/L (3.5-5.1); Sodium 138 mEq/L (136-145); eGFR For African Americans > 60 (> 60); eGFR For Non-African Americans 52 (> 60)
[2020-03-19] MEDS: Melatonin 3 MG TABLET PO PRN (23:39)
[2020-03-20] MEDS: Insulin LISPRO 300 UNITS/3 ML VIAL SUBQ SCH ×4 (01:00→18:36)
[2020-03-20 02:10] LABS: Basophils # 0.2 K/mcL (0.0-0.2); Basophils % 0.9 %; Eosinophils % 11.7 %; Hematocrit 25.5 % (37.5-50.1); Hemoglobin 8.4 g/dL (12.9-16.9); Immature Granulocytes % 2.3 % (0-4); Lymphocytes # 1.6 K/mcL (0.6-4.6); Lymphocytes % 9.4 %; Mean Corpuscular HGB Conc 32.9 g/dL (31.6-35.5); Mean Corpuscular Hemoglobin 28.9 pg (28.0-33.3); Mean Corpuscular Volume 87.6 fL (83.0-100.0); Mean Platelet Volume 9.7 fL (9.4-12.4); Monocytes # 1.2 K/mcL (0.0-1.3); Monocytes % 7.4 %; Neutrophils # 11.4 K/mcL (1.6-8.9); Platelet Count 201 K/mcL (140-400); Red Blood Count 2.91 M/mcL (4.19-5.50); Red Cell Distribution Width 15.4 % (11.5-14.5); Segmented Neutrophils % 68.3 %; White Blood Count 16.7 K/mcL (4.3-11.1)
[2020-03-20 02:28] LABS: BUN/Creatinine Ratio 30 (6-26); Blood Urea Nitrogen 37 mg/dL (8-23); Calcium 9.9 mg/dL (8.6-10.3); Carbon Dioxide 26 mEq/L (23-29); Chloride 105 mEq/L (98-107); Glucose 219 mg/dL (70-105); Magnesium 1.6 mg/dL (1.6-2.6); Osmolality,Calculated 299 (280-300); Potassium 3.4 mEq/L (3.5-5.1); Sodium 137 mEq/L (136-145); eGFR For African Americans > 60 (> 60); eGFR For Non-African Americans 58 (> 60)
[2020-03-20] MEDS: Cefepime HCl 2,000 MG in Water for inj. (sterile) 20 ML IVP SCH ×2 (06:20→18:37)
[2020-03-20] MEDS: *HR* Heparin 5,000 UNIT/ML VIAL SQ SCH ×3 (06:20→21:51)
[2020-03-20] MEDS: MetroNIDAZOLE 500 MG/100 ML 500 MG/100 ML BAG IVPB SCH ×2 (08:33→16:29)
[2020-03-20] MEDS: 0.9 % Sodium Chloride 1,000 ML IVC SCH ×2 (11:15→21:50)
[2020-03-20] MEDS: Melatonin 3 MG TABLET PO PRN (21:51)
[2020-03-21] MEDS: Insulin LISPRO 300 UNITS/3 ML VIAL SUBQ SCH ×4 (01:18→18:20)
[2020-03-21] MEDS: MetroNIDAZOLE 500 MG/100 ML 500 MG/100 ML BAG IVPB SCH ×3 (01:18→16:44)
[2020-03-21 04:28] LABS: Basophils # 0.2 K/mcL (0.0-0.2); Basophils % 1.1 %; Eosinophils # 1.8 K/mcL (0.0-0.6); Eosinophils % 11.7 %; Hematocrit 24.9 % (37.5-50.1); Hemoglobin 8.2 g/dL (12.9-16.9); Immature Granulocytes % 4.5 % (0-4); Lymphocytes # 1.6 K/mcL (0.6-4.6); Lymphocytes % 10.1 %; Mean Corpuscular HGB Conc 32.9 g/dL (31.6-35.5); Mean Corpuscular Hemoglobin 29.6 pg (28.0-33.3); Mean Corpuscular Volume 89.9 fL (83.0-100.0); Monocytes # 1.5 K/mcL (0.0-1.3); Monocytes % 9.2 %; Platelet Count 198 K/mcL (140-400); Red Blood Count 2.77 M/mcL (4.19-5.50); Red Cell Distribution Width 15.4 % (11.5-14.5); Segmented Neutrophils % 63.4 %; White Blood Count 15.7 K/mcL (4.3-11.1)
[2020-03-21 04:46] LABS: BUN/Creatinine Ratio 28 (6-26); Blood Urea Nitrogen 30 mg/dL (8-23); Calcium 9.5 mg/dL (8.6-10.3); Carbon Dioxide 26 mEq/L (23-29); Chloride 106 mEq/L (98-107); Glucose 178 mg/dL (70-105); Magnesium 1.6 mg/dL (1.6-2.6); Osmolality,Calculated 297 (280-300); Potassium 3.1 mEq/L (3.5-5.1); Sodium 138 mEq/L (136-145); eGFR For African Americans > 60 (> 60); eGFR For Non-African Americans > 60 (> 60)
[2020-03-21] MEDS: *HR* Heparin 5,000 UNIT/ML VIAL SQ SCH ×3 (06:43→21:58)
[2020-03-21] MEDS: Cefepime HCl 2,000 MG in Water for inj. (sterile) 20 ML IVP SCH ×2 (06:44→18:19)
[2020-03-21] MEDS: Potassium Chloride Elixir 20 MEQ/15 ML UDC PO SCH ×2 (08:32→12:05)
[2020-03-21] MEDS: 0.9 % Sodium Chloride 1,000 ML IVC SCH ×2 (10:20→21:58)
[2020-03-21] MEDS: Lactobacillus 1 EACH CAP.SPRINK PO SCH ×2 (13:08→21:58)
[2020-03-21] MEDS: Melatonin 3 MG TABLET PO PRN (21:58)
[2020-03-22] MEDS: MetroNIDAZOLE 500 MG/100 ML 500 MG/100 ML BAG IVPB SCH ×4 (00:18→23:41)
[2020-03-22] MEDS: Insulin LISPRO 300 UNITS/3 ML VIAL SUBQ SCH ×5 (00:19→23:44)
[2020-03-22 05:12] LABS: Hematocrit 24.9 % (37.5-50.1); Hemoglobin 8.3 g/dL (12.9-16.9); Mean Corpuscular HGB Conc 33.3 g/dL (31.6-35.5); Mean Corpuscular Hemoglobin 29.7 pg (28.0-33.3); Mean Corpuscular Volume 89.2 fL (83.0-100.0); Platelet Count 187 K/mcL (140-400); Red Blood Count 2.79 M/mcL (4.19-5.50); Red Cell Distribution Width 15.5 % (11.5-14.5)
[2020-03-22 05:28] LABS: BUN/Creatinine Ratio 26 (6-26); Blood Urea Nitrogen 27 mg/dL (8-23); Calcium 9.4 mg/dL (8.6-10.3); Carbon Dioxide 25 mEq/L (23-29); Chloride 108 mEq/L (98-107); Glucose 189 mg/dL (70-105); Magnesium 1.5 mg/dL (1.6-2.6); Osmolality,Calculated 298 (280-300); Phosphorous 2.6 mg/dL (2.7-4.5); Potassium 3.4 mEq/L (3.5-5.1); Sodium 139 mEq/L (136-145); eGFR For African Americans > 60 (> 60); eGFR For Non-African Americans > 60 (> 60)
[2020-03-22] MEDS: *HR* Heparin 5,000 UNIT/ML VIAL SQ SCH ×3 (06:19→22:23)
[2020-03-22] MEDS ORDERED: Potassium Phosphate 44 MEQ in 0.9 % Sodium Chloride 250 ML IVPB ONE (07:19)
[2020-03-22] MEDS: Cefepime HCl 2,000 MG in Water for inj. (sterile) 20 ML IVP SCH ×2 (07:30→17:52)
[2020-03-22] MEDS: Lactobacillus 1 EACH CAP.SPRINK PO SCH ×2 (08:46→22:23)
[2020-03-22] MEDS: Potassium Chloride Elixir 20 MEQ/15 ML UDC PO SCH ×2 (08:46→12:20)
[2020-03-22 11:45] LABS: Eosinophils # 1.6 K/mcL (0.0-0.6); Lymphocytes # 0.6 K/mcL (0.6-4.6); Neutrophils # 12.2 K/mcL (1.6-8.9)
[2020-03-22 11:46] LABS: Anisocytosis 1+ (Not Present); Platelet Estimate Normal (Normal); Toxic Granulation Present (Not Present)
[2020-03-22] MEDS: 0.9 % Sodium Chloride 1,000 ML IVC SCH ×3 (12:24→23:59)
[2020-03-22] MEDS: Melatonin 3 MG TABLET PO PRN (22:22)
[2020-03-23 04:35] LABS: Hematocrit 26.1 % (37.5-50.1); Hemoglobin 8.6 g/dL (12.9-16.9); Mean Corpuscular Hemoglobin 29.9 pg (28.0-33.3); Mean Corpuscular Volume 90.6 fL (83.0-100.0); Mean Platelet Volume 10.3 fL (9.4-12.4); Nucleated Red Blood Cells 0.1 /100 WBC (0); Platelet Count 201 K/mcL (140-400); Red Blood Count 2.88 M/mcL (4.19-5.50); White Blood Count 16.9 K/mcL (4.3-11.1)
[2020-03-23 04:54] LABS: BUN/Creatinine Ratio 25 (6-26); Blood Urea Nitrogen 26 mg/dL (8-23); Calcium 9.4 mg/dL (8.6-10.3); Carbon Dioxide 24 mEq/L (23-29); Chloride 108 mEq/L (98-107); Glucose 190 mg/dL (70-105); Osmolality,Calculated 298 (280-300); Phosphorous 3.5 mg/dL (2.7-4.5); Potassium 3.8 mEq/L (3.5-5.1); Sodium 139 mEq/L (136-145); eGFR For African Americans > 60 (> 60); eGFR For Non-African Americans > 60 (> 60)
[2020-03-23] MEDS: Insulin LISPRO 300 UNITS/3 ML VIAL SUBQ SCH ×3 (05:04→18:02)
[2020-03-23] MEDS: *HR* Heparin 5,000 UNIT/ML VIAL SQ SCH ×3 (05:05→21:57)
[2020-03-23 05:12] LABS: Eosinophils # 2.4 K/mcL (0.0-0.6); Monocytes # 1.4 K/mcL (0.0-1.3); Neutrophils # 11.2 K/mcL (1.6-8.9)
[2020-03-23] MEDS: Lactobacillus 1 EACH CAP.SPRINK PO SCH ×2 (07:56→21:57)
[2020-03-23] MEDS: Cefepime HCl 2,000 MG in Water for inj. (sterile) 20 ML IVP SCH ×2 (07:56→17:55)
[2020-03-23] MEDS: MetroNIDAZOLE 500 MG/100 ML 500 MG/100 ML BAG IVPB SCH ×2 (07:57→17:54)
[2020-03-23] MEDS: 0.9 % Sodium Chloride 1,000 ML IVC SCH (11:38)
[2020-03-23] MEDS: amLODIPine 5 MG TABLET PO SCH (17:57)
[2020-03-24] MEDS: MetroNIDAZOLE 500 MG/100 ML 500 MG/100 ML BAG IVPB SCH ×2 (00:16→09:21)
[2020-03-24] MEDS: Insulin LISPRO 300 UNITS/3 ML VIAL SUBQ SCH ×5 (00:16→23:35)
[2020-03-24 02:59] LABS: Hematocrit 27.2 % (37.5-50.1); Hemoglobin 8.8 g/dL (12.9-16.9); Mean Corpuscular HGB Conc 32.4 g/dL (31.6-35.5); Mean Corpuscular Hemoglobin 29.1 pg (28.0-33.3); Mean Corpuscular Volume 90.1 fL (83.0-100.0); Mean Platelet Volume 10.3 fL (9.4-12.4); Platelet Count 204 K/mcL (140-400); Red Blood Count 3.02 M/mcL (4.19-5.50); Red Cell Distribution Width 16.3 % (11.5-14.5); White Blood Count 16.9 K/mcL (4.3-11.1)
[2020-03-24 03:14] LABS: BUN/Creatinine Ratio 27 (6-26); Blood Urea Nitrogen 26 mg/dL (8-23); Calcium 9.2 mg/dL (8.6-10.3); Carbon Dioxide 25 mEq/L (23-29); Chloride 106 mEq/L (98-107); Glucose 205 mg/dL (70-105); Magnesium 1.8 mg/dL (1.6-2.6); Osmolality,Calculated 297 (280-300); Phosphorous 3.1 mg/dL (2.7-4.5); Potassium 3.4 mEq/L (3.5-5.1); Sodium 138 mEq/L (136-145); eGFR For African Americans > 60 (> 60); eGFR For Non-African Americans > 60 (> 60)
[2020-03-24 04:47] LABS: Anisocytosis 1+ (Not Present); Eosinophils # 1.7 K/mcL (0.0-0.6); Lymphocytes # 1.4 K/mcL (0.6-4.6); Microcytosis Present (Not Present); Neutrophils # 12.8 K/mcL (1.6-8.9); Platelet Estimate Normal (Normal)
[2020-03-24] MEDS: *HR* Heparin 5,000 UNIT/ML VIAL SQ SCH ×3 (06:38→20:48)
[2020-03-24] MEDS ORDERED: Potassium Chloride Elixir 20 MEQ/15 ML UDC GTUBE ONE (08:15)
[2020-03-24] MEDS: Cefepime HCl 2,000 MG in Water for inj. (sterile) 20 ML IVP SCH (09:20)
[2020-03-24] MEDS: amLODIPine 5 MG TABLET PO SCH (09:21)
[2020-03-24] MEDS: Lactobacillus 1 EACH CAP.SPRINK PO SCH ×2 (09:21→20:48)
[2020-03-24] MEDS: metroNIDAZOLE 500 MG TABLET PO SCH ×2 (16:18→20:48)
[2020-03-24] MEDS: lisinopriL 20 MG TABLET PO SCH (18:55)
[2020-03-24] MEDS ORDERED: Insulin DETEMIR 100 UNIT/ML X5UNITS SUBQ SCH (21:00)
[2020-03-24] MEDS: Melatonin 3 MG TABLET PO PRN (23:35)
[2020-03-25] MEDS: Insulin LISPRO 300 UNITS/3 ML VIAL SUBQ SCH ×2 (06:00→13:04)
[2020-03-25] MEDS: *HR* Heparin 5,000 UNIT/ML VIAL SQ SCH ×2 (06:00→16:14)
[2020-03-25 06:58] LABS: Hematocrit 26.6 % (37.5-50.1); Hemoglobin 8.7 g/dL (12.9-16.9); Mean Corpuscular HGB Conc 32.7 g/dL (31.6-35.5); Mean Corpuscular Hemoglobin 30.3 pg (28.0-33.3); Mean Corpuscular Volume 92.7 fL (83.0-100.0); Mean Platelet Volume 10.8 fL (9.4-12.4); Platelet Count 210 K/mcL (140-400); Red Blood Count 2.87 M/mcL (4.19-5.50); Red Cell Distribution Width 16.3 % (11.5-14.5); White Blood Count 14.6 K/mcL (4.3-11.1)
[2020-03-25 07:15] LABS: BUN/Creatinine Ratio 23 (6-26); Blood Urea Nitrogen 25 mg/dL (8-23); Calcium 9.5 mg/dL (8.6-10.3); Carbon Dioxide 27 mEq/L (23-29); Chloride 102 mEq/L (98-107); Glucose 194 mg/dL (70-105); Magnesium 1.7 mg/dL (1.6-2.6); Osmolality,Calculated 292 (280-300); Phosphorous 3.2 mg/dL (2.7-4.5); Potassium 3.5 mEq/L (3.5-5.1); Sodium 136 mEq/L (136-145); eGFR For African Americans > 60 (> 60); eGFR For Non-African Americans > 60 (> 60)
[2020-03-25 07:46] LABS: Platelet Estimate Normal (Normal)
[2020-03-25 07:50] LABS: Basophils # 0.3 K/mcL (0.0-0.2); Eosinophils # 1.5 K/mcL (0.0-0.6); Lymphocytes # 1.2 K/mcL (0.6-4.6); Monocytes # 0.9 K/mcL (0.0-1.3); Neutrophils # 10.2 K/mcL (1.6-8.9)
[2020-03-25] MEDS: lisinopriL 20 MG TABLET PO SCH (11:14)
[2020-03-25] MEDS: Lactobacillus 1 EACH CAP.SPRINK PO SCH (11:14)
[2020-03-25] MEDS: metroNIDAZOLE 500 MG TABLET PO SCH ×2 (11:14→16:14)
[2020-03-25] MEDS: amLODIPine 5 MG TABLET PO SCH (11:15)
[2020-03-25 12:07] VITALS: BP 151/56
== END 2020-03-25 19:30 | DRG 871 ==
LOC: EMEROOARM 05:03 → ICNU 07:37 → SUATTDRO 07:37 → ICNU 08:42 → 3ANU 03-18 17:10
PROVIDERS: ADMIT Family Medicine; ATTEND Internal Medicine

== ENCOUNTER 2020-10-15 19:17 | Observation (INO) ==
[2020-10-15 19:59] LABS: Basophils # 0.1 K/mcL (0.0-0.2); Basophils % 0.8 %; Eosinophils # 0.4 K/mcL (0.0-0.6); Eosinophils % 3.3 %; Hematocrit 35.6 % (37.5-50.1); Hemoglobin 11.5 g/dL (12.9-16.9); Immature Granulocytes % 1.7 % (0-4); Lymphocytes # 1.8 K/mcL (0.6-4.6); Lymphocytes % 16.9 %; Mean Corpuscular HGB Conc 32.3 g/dL (31.6-35.5); Mean Corpuscular Hemoglobin 27.5 pg (28.0-33.3); Mean Corpuscular Volume 85.2 fL (83.0-100.0); Mean Platelet Volume 10.4 fL (9.4-12.4); Monocytes # 0.8 K/mcL (0.0-1.3); Monocytes % 7.9 %; Neutrophils # 7.4 K/mcL (1.6-8.9); Platelet Count 209 K/mcL (140-400); Red Blood Count 4.18 M/mcL (4.19-5.50); Red Cell Distribution Width 15.9 % (11.5-14.5); Segmented Neutrophils % 69.4 %; White Blood Count 10.7 K/mcL (4.3-11.1)
[2020-10-15 20:21] LABS: BUN/Creatinine Ratio 18 (6-26); Blood Urea Nitrogen 44 mg/dL (8-23); Calcium 9.1 mg/dL (8.6-10.3); Carbon Dioxide 20 mEq/L (23-29); Chloride 104 mEq/L (98-107); Glucose 188 mg/dL (70-105); Osmolality,Calculated 296 (280-300); Potassium 4.7 mEq/L (3.5-5.1); Sodium 135 mEq/L (136-145); eGFR For African Americans 32 (> 60); eGFR For Non-African Americans 27 (> 60)
[2020-10-15 20:22] LABS: Troponin I < 0.03 ng/mL (< 0.04)
[2020-10-15] MEDS ORDERED: 0.9 % Sodium Chloride 1,000 ML IVC ONE (21:10)
[2020-10-15] MEDS ORDERED: D5% in Water 1,000 ML IVC PRN (23:30)
[2020-10-15] MEDS ORDERED: Dextrose Gel 15 GM/37.5 ML TUBE PO PRN ×2 (23:30)
[2020-10-15] MEDS ORDERED: *HR* Dextrose 50 % in Water (Vial) 50 ML VIAL IVP PRN (23:30)
[2020-10-15] MEDS ORDERED: Insulin LISPRO 300 UNITS/3 ML VIAL SUBQ SCH (23:30)
[2020-10-15] MEDS ORDERED: Naloxone 0.4 MG/ML INJ IVP PRN (23:31)
[2020-10-15] MEDS ORDERED: Ondansetron 4 MG/2 ML VIAL IVP PRN (23:31)
[2020-10-15] MEDS ORDERED: Acetaminophen 325 MG TABLET PO PRN (23:31)
[2020-10-16] MEDS ORDERED: 0.9 % Sodium Chloride 1,000 ML IVC SCH (00:30)
[2020-10-16 02:36] LABS: Hematocrit 33.3 % (37.5-50.1); Hemoglobin 10.8 g/dL (12.9-16.9); Mean Corpuscular HGB Conc 32.4 g/dL (31.6-35.5); Mean Corpuscular Hemoglobin 27.9 pg (28.0-33.3); Mean Platelet Volume 10.5 fL (9.4-12.4); Platelet Count 186 K/mcL (140-400); Red Blood Count 3.87 M/mcL (4.19-5.50); Red Cell Distribution Width 15.8 % (11.5-14.5); White Blood Count 9.9 K/mcL (4.3-11.1)
[2020-10-16 02:43] LABS: Prothrombin Time 11.9 Seconds (9.4-12.1)
[2020-10-16 02:46] LABS: Activated Partial Thrombo Time 27.1 Seconds (26.0-36.0)
[2020-10-16 02:55] LABS: BUN/Creatinine Ratio 21 (6-26); Blood Urea Nitrogen 38 mg/dL (8-23); Calcium 8.7 mg/dL (8.6-10.3); Carbon Dioxide 21 mEq/L (23-29); Chloride 106 mEq/L (98-107); Chol/HDL Ratio 5.8 (0-4.9); Cholesterol 163 mg/dL (< 200); Glucose 136 mg/dL (70-105); HDL Cholesterol 28 mg/dL (40-59); Magnesium 1.7 mg/dL (1.6-2.6); Osmolality,Calculated 291 (280-300); Potassium 4.4 mEq/L (3.5-5.1); Sodium 135 mEq/L (136-145); Triglycerides 491 mg/dL (< 150); eGFR For African Americans 44 (> 60); eGFR For Non-African Americans 36 (> 60)
[2020-10-16 03:01] LABS: Estimated Average Glucose 174 mg/dl; Hemoglobin A1C 7.7 %
[2020-10-16 03:11] LABS: Thyroid Stimulating Hormone 2.289 mcIU/mL (0.340-5.600)
[2020-10-16 03:21] LABS: Folate 7.7 ng/mL (3.0-16.0)
[2020-10-16 08:22] VITALS: O2SAT 95
[2020-10-16] MEDS: Insulin LISPRO 300 UNITS/3 ML VIAL SUBQ SCH ×2 (08:32→11:46)
[2020-10-16 11:24] VITALS: BP 134/75; PULSE 66; TEMP 97.5
== END 2020-10-16 15:21 | disposition home or self-care (01) ==
LOC: EMEROOARM 19:17 → 3BNU 19:17 → 3ANU 22:23
PROVIDERS: ADMIT Student in an Organized Health Care Education/Training Program; ATTEND Student in an Organized Health Care Education/Training Program